=== PATIENT | male | born 1975 | race Caucasian/White ===

== ENCOUNTER 2017-01-11 16:51 | Outpatient (CLI) | payer MEDICARE, MEDICAID | END 2017-01-11 16:52 | disposition short-term general hospital (02) | LOC: EMS 16:51 | PROVIDERS: ATTEND Surgery | DX: M54.9 Dorsalgia, unspecified (principal) | CPT/HCPCS: A0425; A0427 ==

== ENCOUNTER 2017-04-23 13:25 | Outpatient (CLI) | payer MEDICARE, MEDICAID | END 2017-04-23 13:26 | disposition critical access hospital (66) | LOC: EMS 13:25 | PROVIDERS: ATTEND Surgery | DX: R55 Syncope and collapse (principal); R42 Dizziness and giddiness; R11.0 Nausea; W07.XXXA Fall from chair, initial encounter; Y92.538 Other ambulatory health services establishments as the place of occurrence of the external cause | CPT/HCPCS: A0425; A0427 ==

== ENCOUNTER 2017-04-23 13:46 | Emergency (ER) | payer MEDICARE, MEDICAID ==
[2017-04-23 13:53] VITALS: BP 139/79
--- NOTE | 2017-04-23 13:57 | ED Physician Documentation ---
PD HPI SYNCOPE - Stated complaint Stated Complaint: SYNCOPE - Chief complaint Chief Complaint: Neuro - History obtained from History obtained from: Patient, EMS - History of Present Illness Witnessed: Witnessed Timing - onset: How many minutes ago (45) Duration: Seconds (3-5) Preceding symptoms: Light headed, Generalized weakness Associated symptoms: No: Seizure, Incontinant of urine, Incontinant of stool, Headache, Vision changes, Chest pain, Palpitations, Diaphoresis, Dyspnea, Nausea / vomiting, Abdominal pain Contributing factors: Other (just finished dialysis, SBP was 75, given 500ml bolus, then went to sit up and felt lightheaded/dizzy then had a brief syncopal event. States normally is lightheaded and dizzy after dialysis.) Injury occurred: Head injury (pt is on ticagrelor) Pain level max: 1 Pain level now: 1 Treatment [employer]OOF [employer]IN [employer]LECTOR: Fluids (IVF) - Additional information Additional information: Patient is a 41-year-old male who had a syncopal event after dialysis today. Fell and hit his head. Is on blood thinners. States normally is hypotensive after dialysis and they are talking about changing his dry weight to prevent this. Review of Systems Ten Systems: 10 systems reviewed and negative Constitutional: denies: Fever, Chills Ears: denies: Ear pain Nose: denies: Rhinorrhea / runny nose, Congestion Throat: denies: Sore throat Cardiac: denies: Chest pain / pressure Respiratory: denies: Cough GI: denies: Abdominal Pain, Nausea, Vomiting, Diarrhea Skin: denies: Rash Musculoskeletal: denies: Neck pain, Back pain Neurologic: denies: Focal weakness, Numbness, Confused, Altered mental status, LOC PD PAST MEDICAL HISTORY - Past Medical History Past Medical History: Yes : Dialysis - Present Medications Home Medications: Ambulatory Orders Medication Instructions Recorded Confirmed Acetaminophen 1 tab PO PRN PRN 04/23/17 04/23/17 Alprazolam 0.5 mg PO PRN PRN 04/23/17 04/23/17 Aspirin 81 mg PO DAILY 04/23/17 04/23/17 Atorvastatin [Lipitor] 40 mg PO DAILY 04/23/17 04/23/17 Calcium Acetate [Phoslo] 2 tab PO TID 04/23/17 04/23/17 Calcium Carbonate [Antacid] 1 tab PO TID 04/23/17 04/23/17 Carvedilol [Coreg] 25 mg PO BID 04/23/17 04/23/17 Clopidogrel [Plavix] 04/23/17 Dexamethasone 2 mg PO DAILY 04/23/17 04/23/17 Febuxostat [Uloric] 40 mg PO DAILY 04/23/17 04/23/17 Furosemide 80 mg PO BID 04/23/17 04/23/17 Lisinopril 2.5 mg PO DAILY 04/23/17 04/23/17 Metoclopramide [Reglan] 10 mg PO PRN PRN 04/23/17 04/23/17 Metoprolol Tartrate 50 mg PO DAILY 04/23/17 04/23/17 Nitroglycerin [Nitrostat] 0.4 mg SL Q5MIN PRN 04/23/17 04/23/17 Omeprazole 20 mg PO DAILY 04/23/17 04/23/17 Ticagrelor [Brilinta] 90 mg PO BID 04/23/17 04/23/17 - Allergies Allergies/Adverse Reactions: Allergies Allergy/AdvReac Type Severity Reaction Status Date / Time No Known Drug Allergies Allergy Verified 04/23/17 13:53 - Living Situation Living Arrangement: reports: At home - Social History Does the pt have substance abuse?: No - Family History Family history: reports: Non contributory PD ED PE NORMAL - Vitals Vital signs reviewed: Yes - General General: Alert and oriented X 3, No acute distress, Well developed/nourished - HEENT HEENT: Atraumatic, PERRL, EOMI, Ears normal, Moist mucous membranes, Pharynx benign - Neck Neck: Supple, no meningeal sign, No bony TTP - Cardiac Cardiac: RRR, Strong equal pulses - Respiratory Respiratory: No respiratory distress, Clear bilaterally - Abdomen Abdomen: Soft, Non tender, Non distended - Back Back: No spinal TTP - Derm Derm: Warm and dry - Extremities Extremities: No tenderness to palpate - Neuro Neuro: Alert and oriented X 3, senior technical writer 2-12 intact, No motor deficit, No sensory deficit, Normal speech GCS Score: 15 - Psych Psych: Normal mood, Normal affect Results - Vitals Vitals: Vital Signs - 24 hr 04/23/17 04/23/17 13:49 14:42 Temperature 36.1 C L Heart Rate 79 Respiratory 18 Rate Blood Pressure 139/79 H O2 Saturation 99 Oxygen O2 Source Room air - EKG (time done) 1403 Rate: Rate (enter#) (79) Rhythm: NSR [place]: Normal Intervals: Normal ND QRS: Normal Ischemia: Normal ST segments - Labs Labs: Laboratory Tests 04/23/17 04/23/17 13:50 13:50 WBC 12.6 H RBC 3.68 L Hgb 11.6 L Hct 34.2 L MCV 92.9 MCH 31.6 H MCHC 34.0 RDW 16.3 H Plt Count 216 MPV 6.7 L Neut # Not Reportable Lymph # Not Reportable [place] # Not Reportable Eos # Not Reportable Baso # Not Reportable Absolute Nucleated RBC Not Reportable Total Counted 100 Band Neuts % (Manual) 4 Metamyelocytes % 1 H Myelocytes % 2 H Neutrophils # (Manual) 9.5 H Lymphocytes # (Manual) 1.6 Monocytes # (Manual) 0.9 Eosinophils # (Manual) 0.3 Nucleated RBCs Not Reportable Differential Comment MANUAL DIFFERENTIAL Manual Slide Review Indicated WBC Morphology 1+ SMUDGE CELLS Platelet Estimate NORMAL (130-450,000) Platelet Morphology NORMAL APPEARANCE RBC Morph Micro Appear 1+ TEARDROP CELLS Sodium 133 L Potassium 4.1 Chloride 99 L Carbon Dioxide 24 Anion Gap 10.0 BUN 25 H Creatinine 4.1 H Estimated GFR (MDRD) 16 L Glucose 148 H Calcium 9.3 - Rads (name of study) head Ct Radiology: Prelim report reviewed, EMP read contemporaneously, See rad report ( normal) PD MEDICAL DECISION MAKING - ED course Complexity details: reviewed results, re-evaluated patient, considered differential, d/w patient ED course: Patient is a 41-year-old male who presents to the emergency department with a syncopal event after dialysis, this was while he was hypotensive from the dialysis. Hypotension and orthostatics resolved with IV fluids. No longer orthostatic here. No findings on telemetry or EKG. No acute laboratory issues. Will follow up with his PCP for further evaluation and care. His campus administrative assistant is going to adjust his dry weight to prevent this in the future. Patient counseled regarding signs and symptoms for which I believe and urgent re -evaluation would be necessary. Patient with good understanding of and agreement to plan and is comfortable going home at this time This document was made in part using voice recognition software. While efforts are made to proofread this document, sound alike and grammatical errors may occur. Head CT is negative. Patient did strike his head and is on blood thinners Departure - Departure Disposition: 01 Home, Self Care Clinical Impression: Syncope Qualifiers: Syncope type: vasovagal syncope Qualified Code(s): R55 - Syncope and collapse Condition: Good Instructions: ED Syncope Vasovagal Follow-Up: Lidia Ramirez MD [Primary Care Provider] - Within 1 week Comments: Your tests are normal today. Return if you worsen Forms: Activity restrictions Discharge Date/Time: 04/23/17 14:59
[2017-04-23 14:08] LABS: BASOPHILS % (AUTO) 0.7 %; EOSINOPHILS % (AUTO) 1.9 %; HCT - HEMATOCRIT 34.2 % (42.0-52.0); HGB - HEMOGLOBIN 11.6 g/dL (14.0-18.0); LYMPHOCYTES % (AUTO) 14.2 %; MEAN CORPUSCULAR HEMOGLOBIN 31.6 pg (27.0-31.0); MEAN CORPUSCULAR VOLUME 92.9 fL (80.0-94.0); MEAN PLATELET VOLUME 6.7 fL (7.4-11.4); MONOCYTES % (AUTO) 7.5 %; NEUTROPHILS % (AUTO) 75.7 %; RED BLOOD COUNT 3.68 10^6/uL (4.70-6.10); RED CELL DISTRIBUTION WIDTH 16.3 % (12.0-15.0); UNCORRECTED WHITE BLOOD COUNT 12.6 x10^3/uL; WHITE BLOOD COUNT 12.6 x10^3/uL (4.8-10.8)
[2017-04-23 14:13] LABS: CALCIUM 9.3 mg/dL (8.5-10.3); CREATININE 4.1 mg/dL (0.6-1.2); POTASSIUM 4.1 mmol/L (3.5-5.0)
--- NOTE | 2017-04-23 14:38 | CT Preliminary Report ---
Exam: CT Head W/O IMPRESSION: Normal head CT. [facility] SITE ID: [id number]
--- NOTE | 2017-04-23 14:41 | CT Report ---
EXAM: CT HEAD EXAM DATE: 04/23/2017 02:23 PM. CLINICAL HISTORY: Syncope, head injury. COMPARISON: None. TECHNIQUE: Multiaxial CT images were obtained from the foramen magnum to the vertex. IV contrast: Non e. Reformats: Coronal. In accordance with CT protocol optimization, one or more of the following dose reduction techniques w ere utilized for this exam: automated exposure control, adjustment of mA and/or KV based on patient s ize, or use of iterative reconstructive technique. FINDINGS: Parenchyma: No intraparenchymal hemorrhage. No evidence of mass, midline shift, or CT findings of inf arction. Bernardo-white differentiation is distinct. Extraaxial Spaces: Normal for age. No subdural or epidural collections. Ventricles: Normal in size and position. Sinuses: Imaged paranasal sinuses, orbits, and mastoids show no significant abnormality. Bones: Unremarkable. Other: None. IMPRESSION: Normal head CT. [facility] Referring Provider Line: [phone] SITE ID: [id number]
[2017-04-23 14:55] LABS: BAND NEUTROPHILS % (MANUAL) 4 %; EOSINOPHILS % (MANUAL) 2 %; LYMPHOCYTES % (MANUAL) 13 %; NEUTROPHILS % (MANUAL) 71 %; TOTAL CELLS COUNTED 100
[2017-04-23 14:56] LABS: NP AUTO DIFFERENTIAL? YES; NP MAN DIFFERENTIAL? NO; PLATELET ESTIMATE, MANUAL NORMAL (130-450,000) (NORMAL); PLATELET MORPHOLOGY NORMAL APPEARANCE (NORMAL); WBC MORPHOLOGY (MULTIPLE) 1+ SMUDGE CELLS (NORMAL)
== END 2017-04-23 14:59 | disposition home or self-care (01) ==
LOC: EDUNIT# → ED 13:46
DX: R55 Syncope and collapse (principal); Z79.82 Long term (current) use of aspirin
CPT/HCPCS: 36415; 70450; 80048; 85025; 93005; 99283

== ENCOUNTER 2017-10-02 10:52 | Outpatient (CLI) | payer MEDICARE, MEDICAID ==
--- NOTE | 2017-10-02 14:14 | XRAY Report ---
TWO VIEW CHEST: 10/02/2017 CLINICAL INDICATION: End-stage renal disease. TECHNIQUE: Frontal and lateral views of the chest demonstrate a normal cardiac silhouette. The lungs are clear. No effusion or pneumothorax is present. IMPRESSION: NORMAL CHEST. TD: 10/02/2017 14:13
--- NOTE | 2017-10-02 15:18 | Ultrasound Report ---
COMPLETE ABDOMINAL ULTRASOUND: CLINICAL INDICATION: End-stage renal disease. TECHNIQUE: Real-time scanning was performed with pharmacy services representative static images obtained. TECHNIQUE: The liver measures 17.2 cm. Hepatic echogenicity is normal. No intrahepatic biliary dilatation or focal parenchymal lesion is present. The common bile duct measures 4 mm. The gallbladder demonstrates cholelithiasis. No gallbladder wall thickening or pericholecystic fluid is seen. The visualized pancreas is unremarkable. The spleen measures 10.7 cm, and appears unremarkable. The kidneys demonstrate cortical thinning and small cortical cysts bilaterally. The right kidney measures 10.6 cm, and the left kidney measures 10.1 cm. The abdominal aorta is normal in caliber. The inferior vena cava is unremarkable. No free fluid is present. IMPRESSION: 1. ATROPHIC KIDNEYS WITHOUT EVIDENCE OF HYDRONEPHROSIS. 2. CHOLELITHIASIS, WITHOUT EVIDENCE OF ACUTE CHOLECYSTITIS. TD: 10/02/2017 15:17
--- NOTE | 2017-10-02 15:38 | CT Report ---
CT OF THE ABDOMEN AND PELVIS WITHOUT CONTRAST: 10/02/2017 CLINICAL INDICATION: End-stage renal disease. TECHNIQUE: Axial CT images of the abdomen and pelvis were obtained without oral or intravenous contrast. FINDINGS: Limited evaluation of the lung bases is unremarkable. ABDOMEN: The kidneys are atrophic. Allowing for the lack of intravenous contrast, the liver, spleen, pancreas and adrenal glands are unremarkable. The gallbladder demonstrates a calcified gallstone. No bowel dilatation, free gas, or free fluid is present. No abdominal adenopathy is seen. PELVIS: The appendix is seen in the right lower quadrant, and is normal in caliber. No pelvic adenopathy is present. The pelvic organs appear unremarkable. No free fluid is seen. Osseous structures demonstrate mild degenerative changes. IMPRESSION: ATROPHIC KIDNEYS. CHOLELITHIASIS. In accordance with CT protocol optimization, one or more of the following dose reduction techniques were utilized for this exam: automated exposure control, adjustment of mA and/or KV based on patient size, or use of iterative reconstructive technique. TD: 10/02/2017 15:36
== END 2017-10-02 10:53 | disposition home or self-care (01) ==
LOC: DI 10:52
PROVIDERS: ATTEND Internal Medicine Nephrology
DX: N18.6 End stage renal disease (principal); Z13.9 Encounter for screening, unspecified; N26.1 Atrophy of kidney (terminal); K80.20 Calculus of gallbladder without cholecystitis without obstruction
CPT/HCPCS: 71046; 74176; 76700

== ENCOUNTER 2018-08-02 20:43 | Outpatient (CLI) | payer MEDICARE, MEDICAID | END 2018-08-02 20:44 | disposition EMS.NT | LOC: EMS 20:43 | PROVIDERS: ATTEND Surgery | DX: R42 Dizziness and giddiness (principal) ==

== ENCOUNTER 2019-06-11 08:18 | Outpatient (CLI) | payer MEDICAID, MEDICARE ==
[2019-06-11 12:54] LABS: BASOPHILS # (AUTO) 0.1 10^3/uL (0.0-0.1); BASOPHILS % (AUTO) 1.2 %; EOSINOPHILS % (AUTO) 0.4 %; HGB - HEMOGLOBIN 12.2 g/dL (14.0-18.0); LYMPHOCYTES # (AUTO) 0.8 10^3/uL (1.5-3.5); LYMPHOCYTES % (AUTO) 12.1 %; MEAN CORPUSCULAR HEMOGLOBIN 31.4 pg (27.0-31.0); MEAN CORPUSCULAR HGB CONC 31.1 g/dL (32.0-36.0); MEAN CORPUSCULAR VOLUME 100.8 fL (80.0-94.0); MONOCYTES # (AUTO) 0.4 10^3/uL (0.0-1.0); MONOCYTES % (AUTO) 5.8 %; NEUTROPHILS # (AUTO) 4.8 10^3/uL (1.5-6.6); NEUTROPHILS % (AUTO) 71.7 %; PLT - PLATELET COUNT 152 10^3/uL (130-450); RED BLOOD COUNT 3.89 10^6/uL (4.70-6.10); RED CELL DISTRIBUTION WIDTH 15.5 % (12.0-15.0); WHITE BLOOD COUNT 6.7 x10^3/uL (4.8-10.8)
[2019-06-11 13:03] LABS: ALBUMIN 4.2 g/dL (3.2-5.5); ALBUMIN/GLOBULIN RATIO 1.9 (1.0-2.2); BILIRUBIN,TOTAL 0.6 mg/dL (0.2-1.0); CALCIUM 9.3 mg/dL (8.5-10.3); CREATININE 1.6 mg/dL (0.6-1.2); MAGNESIUM 1.9 mg/dL (1.7-2.8); PHOSPHORUS 2.4 mg/dL (2.5-4.6); TOTAL PROTEIN 6.4 g/dL (6.7-8.2)
[2019-06-11 14:02] LABS: RBC MORPHOLOGY (MULTIPLE) 2+ ANISOCYTOSIS (NORMAL)
== END 2019-06-13 23:59 | disposition home or self-care (01) ==
LOC: LAB.N 08:18
PROVIDERS: ATTEND Internal Medicine
DX: Z94.0 Kidney transplant status (principal); Z48.298 Encounter for aftercare following other organ transplant; T86.40 Unspecified complication of liver transplant; E83.40 Disorders of magnesium metabolism, unspecified
CPT/HCPCS: 36415; 80053; 80197; 83735; 84100; 85025

== ENCOUNTER 2019-06-18 08:00 | Outpatient (CLI) | payer MEDICAID, MEDICARE ==
[2019-06-18 12:03] LABS: BASOPHILS # (AUTO) 0.1 10^3/uL (0.0-0.1); EOSINOPHILS % (AUTO) 0.5 %; HGB - HEMOGLOBIN 13.9 g/dL (14.0-18.0); LYMPHOCYTES # (AUTO) 0.9 10^3/uL (1.5-3.5); LYMPHOCYTES % (AUTO) 11.9 %; MEAN CORPUSCULAR HEMOGLOBIN 31.7 pg (27.0-31.0); MEAN CORPUSCULAR HGB CONC 31.7 g/dL (32.0-36.0); MEAN CORPUSCULAR VOLUME 100.2 fL (80.0-94.0); MEAN PLATELET VOLUME 9.4 fL (7.4-11.4); MONOCYTES # (AUTO) 0.5 10^3/uL (0.0-1.0); MONOCYTES % (AUTO) 6.1 %; NEUTROPHILS # (AUTO) 5.7 10^3/uL (1.5-6.6); NEUTROPHILS % (AUTO) 73.4 %; PLT - PLATELET COUNT 186 10^3/uL (130-450); RED BLOOD COUNT 4.38 10^6/uL (4.70-6.10); RED CELL DISTRIBUTION WIDTH 14.7 % (12.0-15.0); WHITE BLOOD COUNT 7.7 x10^3/uL (4.8-10.8)
[2019-06-18 12:19] LABS: ALBUMIN 4.8 g/dL (3.2-5.5); ALBUMIN/GLOBULIN RATIO 1.8 (1.0-2.2); BILIRUBIN,TOTAL 0.6 mg/dL (0.2-1.0); CALCIUM 9.8 mg/dL (8.5-10.3); CREATININE 2.2 mg/dL (0.6-1.2); MAGNESIUM 1.9 mg/dL (1.7-2.8); PHOSPHORUS 3.4 mg/dL (2.5-4.6); TOTAL PROTEIN 7.4 g/dL (6.7-8.2)
[2019-06-18 12:28] LABS: PLATELET ESTIMATE, MANUAL NORMAL (130-450,000) (NORMAL); PLATELET MORPHOLOGY NORMAL APPEARANCE (NORMAL)
[2019-06-18 12:29] LABS: RBC MORPHOLOGY (MULTIPLE) NORMAL APPEARANCE (NORMAL)
== END 2019-06-18 23:59 | disposition home or self-care (01) ==
LOC: LAB.N 08:00
PROVIDERS: ATTEND Internal Medicine
DX: Z94.0 Kidney transplant status (principal); Z48.298 Encounter for aftercare following other organ transplant; T86.40 Unspecified complication of liver transplant; E83.40 Disorders of magnesium metabolism, unspecified
CPT/HCPCS: 36415; 80053; 80197; 83735; 84100; 85025

== ENCOUNTER 2019-06-19 08:00 | Outpatient (CLI) | payer MEDICAID, MEDICARE ==
[2019-06-19 18:56] LABS: BILIRUBIN,URINE NEGATIVE (NEGATIVE); GLUCOSE, URINE (UA) NEGATIVE (NEGATIVE); KETONES,URINE (UA) NEGATIVE (NEGATIVE); LEUKOCYTE ESTERASE, URINE NEGATIVE (NEGATIVE); NITRITE,URINE NEGATIVE (NEGATIVE); OCCULT BLOOD,URINE MODERATE (NEGATIVE); PH,URINE 5.5 PH (5.0-7.5); PROTEIN,URINE NEGATIVE (NEGATIVE); UROBILINOGEN,URINE 0.2 (NORMAL) E.U./dL (NORMAL)
[2019-06-19 19:29] LABS: BACTERIA,URINE None Seen /HPF (None Seen); CLARITY,URINE CLEAR (CLEAR); SQUAMOUS EPITHELIAL CELL,UR RARE Squamous (<= Few)
== END 2019-06-19 23:59 | disposition home or self-care (01) ==
LOC: LAB.N 08:00
PROVIDERS: ATTEND Internal Medicine
DX: Z94.0 Kidney transplant status (principal); N39.0 Urinary tract infection, site not specified; Z48.298 Encounter for aftercare following other organ transplant; T86.90 Unspecified complication of unspecified transplanted organ and tissue
CPT/HCPCS: 81001; 81003; 87086

== ENCOUNTER 2019-06-25 08:00 | Outpatient (CLI) | payer MEDICARE ==
[2019-06-25 12:03] LABS: BASOPHILS % (AUTO) 1.2 %; EOSINOPHILS % (AUTO) 1.1 %; HGB - HEMOGLOBIN 13.4 g/dL (14.0-18.0); LYMPHOCYTES % (AUTO) 13.5 %; MEAN CORPUSCULAR HEMOGLOBIN 32.4 pg (27.0-31.0); MEAN CORPUSCULAR HGB CONC 32.4 g/dL (32.0-36.0); MEAN CORPUSCULAR VOLUME 99.8 fL (80.0-94.0); MEAN PLATELET VOLUME 9.3 fL (7.4-11.4); MONOCYTES % (AUTO) 5.4 %; NEUTROPHILS % (AUTO) 71.5 %; PLT - PLATELET COUNT 179 10^3/uL (130-450); RED BLOOD COUNT 4.14 10^6/uL (4.70-6.10); RED CELL DISTRIBUTION WIDTH 14.3 % (12.0-15.0); WHITE BLOOD COUNT 7.4 x10^3/uL (4.8-10.8)
[2019-06-25 12:22] LABS: BILIRUBIN,URINE NEGATIVE (NEGATIVE); GLUCOSE, URINE (UA) NEGATIVE (NEGATIVE); KETONES,URINE (UA) NEGATIVE (NEGATIVE); LEUKOCYTE ESTERASE, URINE NEGATIVE (NEGATIVE); NITRITE,URINE NEGATIVE (NEGATIVE); OCCULT BLOOD,URINE TRACE-LYSE (NEGATIVE); PROTEIN,URINE NEGATIVE (NEGATIVE); UROBILINOGEN,URINE 0.2 (NORMAL) E.U./dL (NORMAL)
[2019-06-25 12:23] LABS: CLARITY,URINE CLEAR (CLEAR)
[2019-06-25 12:33] LABS: ALBUMIN 4.2 g/dL (3.2-5.5); ALBUMIN/GLOBULIN RATIO 1.8 (1.0-2.2); BILIRUBIN,TOTAL 0.4 mg/dL (0.2-1.0); CALCIUM 9.4 mg/dL (8.5-10.3); CREATININE 1.4 mg/dL (0.6-1.2); MAGNESIUM 1.7 mg/dL (1.7-2.8); TOTAL PROTEIN 6.5 g/dL (6.7-8.2)
[2019-06-25 12:49] LABS: CREATININE,URINE 45.4 mg/dL
[2019-06-25 12:50] LABS: TOTAL PROTEIN,URINE TIMED < 6 mg/dL
[2019-06-25 12:54] LABS: ABNORMAL LYMPHS % (MANUAL) 0 %
[2019-06-25 13:02] LABS: BAND NEUTROPHILS % (MANUAL) 2 %; DIFFERENTIAL COMMENT MANUAL DIFFERENTIAL; EOSINOPHILS # (MANUAL) 0.1 10^3/uL (0-0.7); LYMPHOCYTES # (MANUAL) 1.4 10^3/uL (1.5-3.5); LYMPHOCYTES % (MANUAL) 7 %; METAMYELOCYTES % (MANUAL) 3 %; MONOCYTES # (MANUAL) 0.3 10^3/uL (0.0-1.0); MYELOCYTES % (MANUAL) 3 %
== END 2019-06-25 23:59 | disposition home or self-care (01) ==
LOC: LAB.N 08:00
PROVIDERS: ATTEND Internal Medicine
DX: Z94.0 Kidney transplant status (principal); N39.0 Urinary tract infection, site not specified; Z48.298 Encounter for aftercare following other organ transplant; T86.40 Unspecified complication of liver transplant; E83.40 Disorders of magnesium metabolism, unspecified
CPT/HCPCS: 36415; 80053; 80197; 81001; 81003; 82570; 83735; 84100; 84156; 85025; 87086

== ENCOUNTER 2019-06-29 08:00 | Outpatient (CLI) | payer MEDICARE ==
[2019-06-29 15:21] LABS: BASOPHILS % (AUTO) 0.5 %; EOSINOPHILS % (AUTO) 1.2 %; HGB - HEMOGLOBIN 13.3 g/dL (14.0-18.0); LYMPHOCYTES % (AUTO) 14.4 %; MEAN CORPUSCULAR HEMOGLOBIN 30.8 pg (27.0-31.0); MEAN CORPUSCULAR HGB CONC 30.8 g/dL (32.0-36.0); MEAN PLATELET VOLUME 9.5 fL (7.4-11.4); MONOCYTES % (AUTO) 6.7 %; NEUTROPHILS % (AUTO) 69.6 %; PLT - PLATELET COUNT 192 10^3/uL (130-450); RED BLOOD COUNT 4.32 10^6/uL (4.70-6.10); RED CELL DISTRIBUTION WIDTH 14.7 % (12.0-15.0); WHITE BLOOD COUNT 7.8 x10^3/uL (4.8-10.8)
[2019-06-29 15:26] LABS: ABNORMAL LYMPHS % (MANUAL) 0 %
[2019-06-29 15:34] LABS: CREATININE,URINE 63.2 mg/dL
[2019-06-29 15:35] LABS: TOTAL PROTEIN,URINE TIMED < 6 mg/dL
[2019-06-29 15:51] LABS: ALBUMIN 4.4 g/dL (3.2-5.5); BILIRUBIN,TOTAL 0.5 mg/dL (0.2-1.0); BILIRUBIN,URINE NEGATIVE (NEGATIVE); CALCIUM 9.4 mg/dL (8.5-10.3); CLARITY,URINE CLEAR (CLEAR); CREATININE 1.6 mg/dL (0.6-1.2); GLUCOSE, URINE (UA) NEGATIVE (NEGATIVE); KETONES,URINE (UA) NEGATIVE (NEGATIVE); LEUKOCYTE ESTERASE, URINE NEGATIVE (NEGATIVE); MAGNESIUM 2.1 mg/dL (1.7-2.8); NITRITE,URINE NEGATIVE (NEGATIVE); OCCULT BLOOD,URINE NEGATIVE (NEGATIVE); PHOSPHORUS 2.4 mg/dL (2.5-4.6); PROTEIN,URINE NEGATIVE (NEGATIVE); TOTAL PROTEIN 6.6 g/dL (6.7-8.2); UROBILINOGEN,URINE 0.2 (NORMAL) E.U./dL (NORMAL)
[2019-06-29 16:54] LABS: BAND NEUTROPHILS % (MANUAL) 5 %; DIFFERENTIAL COMMENT MANUAL DIFFERENTIAL; EOSINOPHILS # (MANUAL) 0.1 10^3/uL (0-0.7); LYMPHOCYTES % (MANUAL) 13 %; MONOCYTES # (MANUAL) 0.2 10^3/uL (0.0-1.0); PLATELET ESTIMATE, MANUAL NORMAL (130-450,000) (NORMAL); PLATELET MORPHOLOGY NORMAL APPEARANCE (NORMAL); RBC MORPHOLOGY (MULTIPLE) NORMAL APPEARANCE (NORMAL)
== END 2019-06-29 23:59 | disposition home or self-care (01) ==
LOC: LAB.WCP 08:00
PROVIDERS: ATTEND Internal Medicine
DX: Z48.298 Encounter for aftercare following other organ transplant (principal); Z94.0 Kidney transplant status; T86.40 Unspecified complication of liver transplant; E83.40 Disorders of magnesium metabolism, unspecified; N39.0 Urinary tract infection, site not specified
CPT/HCPCS: 36415; 80053; 80197; 81001; 81003; 82570; 83735; 84100; 84156; 85025; 87086

== ENCOUNTER 2019-07-09 08:00 | Outpatient (CLI) | payer MEDICARE ==
[2019-07-09 13:04] LABS: BASOPHILS # (AUTO) 0.1 10^3/uL (0.0-0.1); BASOPHILS % (AUTO) 1.2 %; EOSINOPHILS # (AUTO) 0.1 10^3/uL (0.0-0.7); EOSINOPHILS % (AUTO) 1.5 %; HGB - HEMOGLOBIN 13.8 g/dL (14.0-18.0); LYMPHOCYTES # (AUTO) 0.9 10^3/uL (1.5-3.5); LYMPHOCYTES % (AUTO) 12.7 %; MEAN CORPUSCULAR HEMOGLOBIN 31.7 pg (27.0-31.0); MEAN CORPUSCULAR HGB CONC 32.1 g/dL (32.0-36.0); MEAN CORPUSCULAR VOLUME 98.9 fL (80.0-94.0); MONOCYTES # (AUTO) 0.5 10^3/uL (0.0-1.0); MONOCYTES % (AUTO) 7.5 %; NEUTROPHILS # (AUTO) 4.8 10^3/uL (1.5-6.6); NEUTROPHILS % (AUTO) 70.9 %; PLT - PLATELET COUNT 174 10^3/uL (130-450); RED BLOOD COUNT 4.35 10^6/uL (4.70-6.10); RED CELL DISTRIBUTION WIDTH 13.9 % (12.0-15.0); WHITE BLOOD COUNT 6.8 x10^3/uL (4.8-10.8)
[2019-07-09 13:14] LABS: ALBUMIN 4.3 g/dL (3.2-5.5); ALBUMIN/GLOBULIN RATIO 1.8 (1.0-2.2); BILIRUBIN,TOTAL 0.5 mg/dL (0.2-1.0); CALCIUM 9.3 mg/dL (8.5-10.3); CREATININE 1.7 mg/dL (0.6-1.2); MAGNESIUM 1.7 mg/dL (1.7-2.8); PHOSPHORUS 2.6 mg/dL (2.5-4.6); TOTAL PROTEIN 6.7 g/dL (6.7-8.2)
[2019-07-09 14:35] LABS: RBC MORPHOLOGY (MULTIPLE) 2+ ANISOCYTOSIS (NORMAL)
== END 2019-07-09 23:59 | disposition home or self-care (01) ==
LOC: LAB.N 08:00
PROVIDERS: ATTEND Internal Medicine
DX: Z94.0 Kidney transplant status (principal); N39.0 Urinary tract infection, site not specified; Z48.298 Encounter for aftercare following other organ transplant; T86.40 Unspecified complication of liver transplant; E83.40 Disorders of magnesium metabolism, unspecified; T86.90 Unspecified complication of unspecified transplanted organ and tissue
CPT/HCPCS: 36415; 80053; 80197; 81001; 81003; 82570; 83735; 84100; 84156; 85025; 87086

== ENCOUNTER 2019-07-13 07:02 | Outpatient (CLI) | payer MEDICARE ==
[2019-07-13 12:55] LABS: EOSINOPHILS % (AUTO) 1.1 %; HGB - HEMOGLOBIN 14.1 g/dL (14.0-18.0); LYMPHOCYTES % (AUTO) 10.7 %; MEAN CORPUSCULAR HEMOGLOBIN 31.7 pg (27.0-31.0); MEAN CORPUSCULAR HGB CONC 32.2 g/dL (32.0-36.0); MEAN CORPUSCULAR VOLUME 98.4 fL (80.0-94.0); MEAN PLATELET VOLUME 9.7 fL (7.4-11.4); MONOCYTES % (AUTO) 8.1 %; PLT - PLATELET COUNT 155 10^3/uL (130-450); RED BLOOD COUNT 4.45 10^6/uL (4.70-6.10); RED CELL DISTRIBUTION WIDTH 14.1 % (12.0-15.0); WHITE BLOOD COUNT 6.2 x10^3/uL (4.8-10.8)
[2019-07-13 13:15] LABS: BILIRUBIN,URINE NEGATIVE (NEGATIVE); GLUCOSE, URINE (UA) NEGATIVE (NEGATIVE); KETONES,URINE (UA) NEGATIVE (NEGATIVE); LEUKOCYTE ESTERASE, URINE NEGATIVE (NEGATIVE); NITRITE,URINE NEGATIVE (NEGATIVE); OCCULT BLOOD,URINE NEGATIVE (NEGATIVE); PROTEIN,URINE NEGATIVE (NEGATIVE); UROBILINOGEN,URINE 0.2 (NORMAL) E.U./dL (NORMAL)
[2019-07-13 13:16] LABS: ALBUMIN 4.4 g/dL (3.2-5.5); ALBUMIN/GLOBULIN RATIO 1.8 (1.0-2.2); BILIRUBIN,TOTAL 0.4 mg/dL (0.2-1.0); CALCIUM 9.6 mg/dL (8.5-10.3); CREATININE 1.5 mg/dL (0.6-1.2); MAGNESIUM 1.9 mg/dL (1.7-2.8); PHOSPHORUS 2.9 mg/dL (2.5-4.6); TOTAL PROTEIN 6.9 g/dL (6.7-8.2)
[2019-07-13 13:19] LABS: CLARITY,URINE CLEAR (CLEAR)
[2019-07-13 14:04] LABS: ABNORMAL LYMPHS % (MANUAL) 0 %
[2019-07-13 14:40] LABS: BAND NEUTROPHILS % (MANUAL) 7 %; EOSINOPHILS # (MANUAL) 0.1 10^3/uL (0-0.7); LYMPHOCYTES # (MANUAL) 0.7 10^3/uL (1.5-3.5); LYMPHOCYTES % (MANUAL) 11 %; METAMYELOCYTES % (MANUAL) 2 %; MONOCYTES # (MANUAL) 0.1 10^3/uL (0.0-1.0); MYELOCYTES % (MANUAL) 2 %
[2019-07-13 14:42] LABS: DIFFERENTIAL COMMENT MANUAL DIFFERENTIAL; PLATELET ESTIMATE, MANUAL NORMAL (130-450,000) (NORMAL); PLATELET MORPHOLOGY NORMAL APPEARANCE (NORMAL); RBC MORPHOLOGY (MULTIPLE) NORMAL APPEARANCE (NORMAL)
== END 2019-07-13 23:59 | disposition home or self-care (01) ==
LOC: LAB.N 07:02
PROVIDERS: ATTEND Internal Medicine
DX: Z94.0 Kidney transplant status (principal); Z48.298 Encounter for aftercare following other organ transplant; T86.40 Unspecified complication of liver transplant; E83.40 Disorders of magnesium metabolism, unspecified; N39.0 Urinary tract infection, site not specified; T86.90 Unspecified complication of unspecified transplanted organ and tissue
CPT/HCPCS: 36415; 80053; 80197; 81001; 81003; 82043; 82570; 83735; 84100; 84156; 85025; 87086

== ENCOUNTER 2019-07-27 07:11 | Outpatient (CLI) | payer MEDICARE ==
[2019-07-27 12:59] LABS: ALBUMIN 4.1 g/dL (3.2-5.5); BILIRUBIN,TOTAL 0.4 mg/dL (0.2-1.0); CALCIUM 9.2 mg/dL (8.5-10.3); CREATININE 1.6 mg/dL (0.6-1.2); MAGNESIUM 1.8 mg/dL (1.7-2.8); PHOSPHORUS 2.7 mg/dL (2.5-4.6); TOTAL PROTEIN 6.2 g/dL (6.7-8.2)
[2019-07-27 13:11] LABS: BASOPHILS # (AUTO) 0.1 10^3/uL (0.0-0.1); BASOPHILS % (AUTO) 1.1 %; EOSINOPHILS # (AUTO) 0.1 10^3/uL (0.0-0.7); EOSINOPHILS % (AUTO) 1.1 %; LYMPHOCYTES % (AUTO) 14.3 %; MEAN CORPUSCULAR HEMOGLOBIN 30.8 pg (27.0-31.0); MEAN CORPUSCULAR HGB CONC 32.3 g/dL (32.0-36.0); MEAN CORPUSCULAR VOLUME 95.4 fL (80.0-94.0); MEAN PLATELET VOLUME 9.3 fL (7.4-11.4); MONOCYTES # (AUTO) 0.6 10^3/uL (0.0-1.0); MONOCYTES % (AUTO) 7.9 %; NEUTROPHILS # (AUTO) 5.1 10^3/uL (1.5-6.6); NEUTROPHILS % (AUTO) 70.6 %; PLT - PLATELET COUNT 172 10^3/uL (130-450); RED BLOOD COUNT 4.54 10^6/uL (4.70-6.10); RED CELL DISTRIBUTION WIDTH 13.5 % (12.0-15.0); WHITE BLOOD COUNT 7.2 x10^3/uL (4.8-10.8)
[2019-07-27 13:25] LABS: BILIRUBIN,URINE NEGATIVE (NEGATIVE); GLUCOSE, URINE (UA) NEGATIVE (NEGATIVE); KETONES,URINE (UA) NEGATIVE (NEGATIVE); LEUKOCYTE ESTERASE, URINE NEGATIVE (NEGATIVE); NITRITE,URINE NEGATIVE (NEGATIVE); OCCULT BLOOD,URINE NEGATIVE (NEGATIVE); PROTEIN,URINE NEGATIVE (NEGATIVE); UROBILINOGEN,URINE 0.2 (NORMAL) E.U./dL (NORMAL)
[2019-07-27 13:26] LABS: CLARITY,URINE CLEAR (CLEAR)
[2019-07-27 13:33] LABS: PROTEIN/CREATININE RATIO,URINE 0.1 (<=0.2)
== END 2019-07-27 23:59 | disposition home or self-care (01) ==
LOC: LAB.N 07:11
PROVIDERS: ATTEND Internal Medicine
DX: Z94.0 Kidney transplant status (principal); Z48.298 Encounter for aftercare following other organ transplant; T86.40 Unspecified complication of liver transplant; E83.40 Disorders of magnesium metabolism, unspecified; N39.0 Urinary tract infection, site not specified; T86.90 Unspecified complication of unspecified transplanted organ and tissue
CPT/HCPCS: 36415; 80053; 80197; 81001; 81003; 82570; 83735; 84100; 84156; 85025; 87086

== ENCOUNTER 2019-08-06 07:27 | Outpatient (CLI) | payer MEDICARE ==
[2019-08-06 12:57] LABS: BASOPHILS # (AUTO) 0.1 10^3/uL (0.0-0.1); BASOPHILS % (AUTO) 0.8 %; EOSINOPHILS # (AUTO) 0.1 10^3/uL (0.0-0.7); EOSINOPHILS % (AUTO) 1.6 %; LYMPHOCYTES # (AUTO) 0.9 10^3/uL (1.5-3.5); LYMPHOCYTES % (AUTO) 14.5 %; MEAN CORPUSCULAR HGB CONC 32.4 g/dL (32.0-36.0); MEAN CORPUSCULAR VOLUME 95.8 fL (80.0-94.0); MEAN PLATELET VOLUME 9.4 fL (7.4-11.4); MONOCYTES # (AUTO) 0.4 10^3/uL (0.0-1.0); NEUTROPHILS # (AUTO) 4.6 10^3/uL (1.5-6.6); NEUTROPHILS % (AUTO) 74.5 %; PLT - PLATELET COUNT 170 10^3/uL (130-450); RED BLOOD COUNT 4.51 10^6/uL (4.70-6.10); RED CELL DISTRIBUTION WIDTH 13.4 % (12.0-15.0); WHITE BLOOD COUNT 6.1 x10^3/uL (4.8-10.8)
[2019-08-06 14:10] LABS: ALBUMIN 4.1 g/dL (3.2-5.5); BILIRUBIN,TOTAL 0.8 mg/dL (0.2-1.0); CALCIUM 9.3 mg/dL (8.5-10.3); CREATININE 1.8 mg/dL (0.6-1.2); MAGNESIUM 1.6 mg/dL (1.7-2.8); PHOSPHORUS 2.6 mg/dL (2.5-4.6); TOTAL PROTEIN 6.2 g/dL (6.7-8.2)
== END 2019-08-06 23:59 | disposition home or self-care (01) ==
LOC: LAB.N 07:27
PROVIDERS: ATTEND Internal Medicine
DX: Z94.0 Kidney transplant status (principal); Z48.298 Encounter for aftercare following other organ transplant; T86.40 Unspecified complication of liver transplant; E83.40 Disorders of magnesium metabolism, unspecified
CPT/HCPCS: 36415; 80053; 80197; 83735; 84100; 85025

== ENCOUNTER 2019-08-13 08:00 | Outpatient (CLI) | payer MEDICARE ==
[2019-08-13 11:56] LABS: BASOPHILS # (AUTO) 0.1 10^3/uL (0.0-0.1); BASOPHILS % (AUTO) 1.4 %; EOSINOPHILS # (AUTO) 0.1 10^3/uL (0.0-0.7); EOSINOPHILS % (AUTO) 1.5 %; HGB - HEMOGLOBIN 14.7 g/dL (14.0-18.0); LYMPHOCYTES # (AUTO) 1.1 10^3/uL (1.5-3.5); LYMPHOCYTES % (AUTO) 17.1 %; MEAN CORPUSCULAR HEMOGLOBIN 30.9 pg (27.0-31.0); MEAN CORPUSCULAR HGB CONC 32.6 g/dL (32.0-36.0); MEAN CORPUSCULAR VOLUME 94.7 fL (80.0-94.0); MONOCYTES # (AUTO) 0.4 10^3/uL (0.0-1.0); MONOCYTES % (AUTO) 6.1 %; NEUTROPHILS # (AUTO) 4.6 10^3/uL (1.5-6.6); NEUTROPHILS % (AUTO) 70.3 %; PLT - PLATELET COUNT 173 10^3/uL (130-450); RED BLOOD COUNT 4.76 10^6/uL (4.70-6.10); RED CELL DISTRIBUTION WIDTH 13.4 % (12.0-15.0); WHITE BLOOD COUNT 6.6 x10^3/uL (4.8-10.8)
[2019-08-13 12:19] LABS: ALBUMIN 4.3 g/dL (3.2-5.5); ALBUMIN/GLOBULIN RATIO 1.6 (1.0-2.2); BILIRUBIN,TOTAL 0.5 mg/dL (0.2-1.0); CALCIUM 9.7 mg/dL (8.5-10.3); CREATININE 1.5 mg/dL (0.6-1.2); PHOSPHORUS 2.9 mg/dL (2.5-4.6)
== END 2019-08-13 23:59 | disposition home or self-care (01) ==
LOC: LAB.N 08:00
PROVIDERS: ATTEND Internal Medicine
DX: Z94.0 Kidney transplant status (principal); Z48.298 Encounter for aftercare following other organ transplant; T86.40 Unspecified complication of liver transplant; E83.40 Disorders of magnesium metabolism, unspecified
CPT/HCPCS: 36415; 80053; 80197; 83735; 84100; 85025

== ENCOUNTER → 2019-08-25 | Outpatient (CLI) | payer MEDICARE ==
[2019-08-25 11:47] LABS: BASOPHILS # (AUTO) 0.1 10^3/uL (0.0-0.1); EOSINOPHILS # (AUTO) 0.1 10^3/uL (0.0-0.7); EOSINOPHILS % (AUTO) 1.2 %; HGB - HEMOGLOBIN 15.4 g/dL (14.0-18.0); LYMPHOCYTES # (AUTO) 1.2 10^3/uL (1.5-3.5); LYMPHOCYTES % (AUTO) 13.5 %; MEAN CORPUSCULAR HEMOGLOBIN 30.9 pg (27.0-31.0); MEAN CORPUSCULAR HGB CONC 32.4 g/dL (32.0-36.0); MEAN CORPUSCULAR VOLUME 95.4 fL (80.0-94.0); MEAN PLATELET VOLUME 9.2 fL (7.4-11.4); MONOCYTES # (AUTO) 0.8 10^3/uL (0.0-1.0); MONOCYTES % (AUTO) 8.9 %; NEUTROPHILS # (AUTO) 6.4 10^3/uL (1.5-6.6); NEUTROPHILS % (AUTO) 70.3 %; PLT - PLATELET COUNT 183 10^3/uL (130-450); RED BLOOD COUNT 4.98 10^6/uL (4.70-6.10); RED CELL DISTRIBUTION WIDTH 13.5 % (12.0-15.0); WHITE BLOOD COUNT 9.1 x10^3/uL (4.8-10.8)
[2019-08-25 12:01] LABS: ALBUMIN 4.2 g/dL (3.2-5.5); ALBUMIN/GLOBULIN RATIO 1.8 (1.0-2.2); BILIRUBIN,TOTAL 0.6 mg/dL (0.2-1.0); CALCIUM 9.2 mg/dL (8.5-10.3); CREATININE 1.4 mg/dL (0.6-1.2); TOTAL PROTEIN 6.6 g/dL (6.7-8.2)
[2019-08-25 12:07] LABS: PLATELET ESTIMATE, MANUAL NORMAL (130-450,000) (NORMAL); PLATELET MORPHOLOGY NORMAL APPEARANCE (NORMAL)
[2019-08-25 12:08] LABS: RBC MORPHOLOGY (MULTIPLE) NORMAL APPEARANCE (NORMAL)
== END ==
LOC: LAB.N 08:00
PROVIDERS: ATTEND Internal Medicine
DX: Z94.0 Kidney transplant status (principal); Z48.298 Encounter for aftercare following other organ transplant; T86.40 Unspecified complication of liver transplant; E83.40 Disorders of magnesium metabolism, unspecified
CPT/HCPCS: 36415; 80053; 80197; 83735; 84100; 85025

== ENCOUNTER → 2019-09-01 | Outpatient (CLI) | payer MEDICARE ==
[2019-09-01 12:23] LABS: BASOPHILS # (AUTO) 0.1 10^3/uL (0.0-0.1); BASOPHILS % (AUTO) 1.3 %; EOSINOPHILS # (AUTO) 0.1 10^3/uL (0.0-0.7); EOSINOPHILS % (AUTO) 1.3 %; LYMPHOCYTES # (AUTO) 1.2 10^3/uL (1.5-3.5); LYMPHOCYTES % (AUTO) 14.6 %; MEAN CORPUSCULAR HEMOGLOBIN 30.5 pg (27.0-31.0); MEAN CORPUSCULAR HGB CONC 32.2 g/dL (32.0-36.0); MEAN CORPUSCULAR VOLUME 94.8 fL (80.0-94.0); MEAN PLATELET VOLUME 9.2 fL (7.4-11.4); MONOCYTES # (AUTO) 0.7 10^3/uL (0.0-1.0); MONOCYTES % (AUTO) 8.4 %; NEUTROPHILS # (AUTO) 5.9 10^3/uL (1.5-6.6); NEUTROPHILS % (AUTO) 69.7 %; PLT - PLATELET COUNT 190 10^3/uL (130-450); RED BLOOD COUNT 5.24 10^6/uL (4.70-6.10); RED CELL DISTRIBUTION WIDTH 13.2 % (12.0-15.0); WHITE BLOOD COUNT 8.5 x10^3/uL (4.8-10.8)
[2019-09-01 12:41] LABS: ALBUMIN 4.4 g/dL (3.2-5.5); ALBUMIN/GLOBULIN RATIO 1.7 (1.0-2.2); BILIRUBIN,TOTAL 0.7 mg/dL (0.2-1.0); CALCIUM 9.3 mg/dL (8.5-10.3); CREATININE 1.4 mg/dL (0.6-1.2); MAGNESIUM 1.8 mg/dL (1.7-2.8); PHOSPHORUS 2.7 mg/dL (2.5-4.6)
== END ==
LOC: LAB.N 08:00
PROVIDERS: ATTEND Internal Medicine
DX: Z94.0 Kidney transplant status (principal); Z48.298 Encounter for aftercare following other organ transplant; T86.40 Unspecified complication of liver transplant; E83.40 Disorders of magnesium metabolism, unspecified
CPT/HCPCS: 36415; 80053; 80197; 83735; 84100; 85025

== ENCOUNTER 2019-09-22 08:00 | Outpatient (CLI) | payer MEDICARE ==
[2019-09-22 11:55] LABS: BASOPHILS # (AUTO) 0.1 10^3/uL (0.0-0.1); BASOPHILS % (AUTO) 1.3 %; EOSINOPHILS # (AUTO) 0.1 10^3/uL (0.0-0.7); EOSINOPHILS % (AUTO) 1.4 %; HGB - HEMOGLOBIN 15.2 g/dL (14.0-18.0); LYMPHOCYTES # (AUTO) 1.1 10^3/uL (1.5-3.5); LYMPHOCYTES % (AUTO) 12.8 %; MEAN CORPUSCULAR HEMOGLOBIN 29.4 pg (27.0-31.0); MEAN CORPUSCULAR HGB CONC 31.7 g/dL (32.0-36.0); MEAN CORPUSCULAR VOLUME 92.8 fL (80.0-94.0); MEAN PLATELET VOLUME 9.6 fL (7.4-11.4); MONOCYTES # (AUTO) 0.7 10^3/uL (0.0-1.0); MONOCYTES % (AUTO) 7.5 %; NEUTROPHILS # (AUTO) 6.4 10^3/uL (1.5-6.6); NEUTROPHILS % (AUTO) 72.9 %; PLT - PLATELET COUNT 166 10^3/uL (130-450); RED BLOOD COUNT 5.17 10^6/uL (4.70-6.10); RED CELL DISTRIBUTION WIDTH 13.2 % (12.0-15.0); WHITE BLOOD COUNT 8.8 x10^3/uL (4.8-10.8)
[2019-09-22 12:07] LABS: CALCIUM 9.3 mg/dL (8.5-10.3); CREATININE 1.4 mg/dL (0.6-1.2)
== END 2019-09-22 23:59 | disposition home or self-care (01) ==
LOC: LAB.N 08:00
PROVIDERS: ATTEND Internal Medicine Nephrology
DX: N05.9 Unspecified nephritic syndrome with unspecified morphologic changes (principal); D70.9 Neutropenia, unspecified; D63.1 Anemia in chronic kidney disease; T86.10 Unspecified complication of kidney transplant; N18.9 Chronic kidney disease, unspecified
CPT/HCPCS: 36415; 80048; 80197; 85025

== ENCOUNTER 2019-09-28 07:01 | Outpatient (CLI) | payer MEDICARE ==
[2019-09-28 11:47] LABS: BASOPHILS # (AUTO) 0.1 10^3/uL (0.0-0.1); BASOPHILS % (AUTO) 1.1 %; EOSINOPHILS # (AUTO) 0.1 10^3/uL (0.0-0.7); EOSINOPHILS % (AUTO) 1.2 %; HGB - HEMOGLOBIN 16.1 g/dL (14.0-18.0); LYMPHOCYTES # (AUTO) 1.4 10^3/uL (1.5-3.5); LYMPHOCYTES % (AUTO) 14.2 %; MEAN CORPUSCULAR HGB CONC 32.5 g/dL (32.0-36.0); MEAN CORPUSCULAR VOLUME 92.4 fL (80.0-94.0); MEAN PLATELET VOLUME 9.4 fL (7.4-11.4); MONOCYTES # (AUTO) 0.8 10^3/uL (0.0-1.0); MONOCYTES % (AUTO) 7.6 %; NEUTROPHILS # (AUTO) 7.1 10^3/uL (1.5-6.6); NEUTROPHILS % (AUTO) 71.2 %; PLT - PLATELET COUNT 206 10^3/uL (130-450); RED BLOOD COUNT 5.36 10^6/uL (4.70-6.10); RED CELL DISTRIBUTION WIDTH 13.2 % (12.0-15.0)
[2019-09-28 12:03] LABS: CALCIUM 9.5 mg/dL (8.5-10.3); CREATININE 1.4 mg/dL (0.6-1.2)
== END 2019-09-28 23:59 | disposition home or self-care (01) ==
LOC: LAB.N 07:01
PROVIDERS: ATTEND Internal Medicine Nephrology
DX: N05.9 Unspecified nephritic syndrome with unspecified morphologic changes (principal); D70.9 Neutropenia, unspecified; D63.1 Anemia in chronic kidney disease; T86.10 Unspecified complication of kidney transplant; N18.9 Chronic kidney disease, unspecified
CPT/HCPCS: 36415; 80048; 80197; 85025

== ENCOUNTER 2019-10-12 08:00 | Outpatient (CLI) | payer MEDICARE, OTHER ==
[2019-10-12 12:10] LABS: BASOPHILS % (AUTO) 0.1 %; EOSINOPHILS # (AUTO) 0.1 10^3/uL (0.0-0.7); EOSINOPHILS % (AUTO) 1.1 %; HGB - HEMOGLOBIN 14.8 g/dL (14.0-18.0); LYMPHOCYTES # (AUTO) 1.4 10^3/uL (1.5-3.5); LYMPHOCYTES % (AUTO) 15.5 %; MEAN CORPUSCULAR HEMOGLOBIN 28.7 pg (27.0-31.0); MEAN CORPUSCULAR HGB CONC 30.9 g/dL (32.0-36.0); MEAN CORPUSCULAR VOLUME 92.8 fL (80.0-94.0); MEAN PLATELET VOLUME 9.2 fL (7.4-11.4); MONOCYTES # (AUTO) 0.6 10^3/uL (0.0-1.0); MONOCYTES % (AUTO) 6.6 %; NEUTROPHILS # (AUTO) 6.6 10^3/uL (1.5-6.6); NEUTROPHILS % (AUTO) 72.3 %; PLT - PLATELET COUNT 170 10^3/uL (130-450); RED BLOOD COUNT 5.16 10^6/uL (4.70-6.10); RED CELL DISTRIBUTION WIDTH 13.2 % (12.0-15.0); WHITE BLOOD COUNT 9.1 x10^3/uL (4.8-10.8)
[2019-10-12 12:40] LABS: CALCIUM 9.4 mg/dL (8.5-10.3); CREATININE 1.4 mg/dL (0.6-1.2)
[2019-10-12 12:41] LABS: PLATELET ESTIMATE, MANUAL NORMAL (130-450,000) (NORMAL); PLATELET MORPHOLOGY NORMAL APPEARANCE (NORMAL); RBC MORPHOLOGY (MULTIPLE) NORMAL APPEARANCE (NORMAL)
== END 2019-10-12 23:59 | disposition home or self-care (01) ==
LOC: LAB.N 08:00
PROVIDERS: ATTEND Internal Medicine Nephrology
DX: N05.9 Unspecified nephritic syndrome with unspecified morphologic changes (principal); D70.9 Neutropenia, unspecified; D63.1 Anemia in chronic kidney disease; T86.10 Unspecified complication of kidney transplant; N18.9 Chronic kidney disease, unspecified
CPT/HCPCS: 36415; 80048; 80197; 85025

== ENCOUNTER 2019-10-26 08:14 | Outpatient (CLI) | payer MEDICARE, OTHER ==
[2019-10-26 12:04] LABS: BASOPHILS # (AUTO) 0.1 10^3/uL (0.0-0.1); BASOPHILS % (AUTO) 0.9 %; EOSINOPHILS # (AUTO) 0.1 10^3/uL (0.0-0.7); EOSINOPHILS % (AUTO) 1.3 %; HGB - HEMOGLOBIN 15.4 g/dL (14.0-18.0); LYMPHOCYTES # (AUTO) 1.4 10^3/uL (1.5-3.5); LYMPHOCYTES % (AUTO) 15.5 %; MEAN CORPUSCULAR HEMOGLOBIN 29.7 pg (27.0-31.0); MEAN CORPUSCULAR HGB CONC 32.7 g/dL (32.0-36.0); MEAN CORPUSCULAR VOLUME 90.8 fL (80.0-94.0); MEAN PLATELET VOLUME 9.4 fL (7.4-11.4); MONOCYTES # (AUTO) 0.6 10^3/uL (0.0-1.0); MONOCYTES % (AUTO) 6.7 %; NEUTROPHILS # (AUTO) 6.3 10^3/uL (1.5-6.6); NEUTROPHILS % (AUTO) 71.4 %; PLT - PLATELET COUNT 186 10^3/uL (130-450); RED BLOOD COUNT 5.19 10^6/uL (4.70-6.10); RED CELL DISTRIBUTION WIDTH 13.3 % (12.0-15.0); WHITE BLOOD COUNT 8.8 x10^3/uL (4.8-10.8)
[2019-10-26 12:25] LABS: CALCIUM 9.2 mg/dL (8.5-10.3); CREATININE 1.4 mg/dL (0.6-1.2)
== END 2019-10-26 23:59 | disposition home or self-care (01) ==
LOC: LAB.N 08:14
PROVIDERS: ATTEND Internal Medicine Nephrology
DX: N05.9 Unspecified nephritic syndrome with unspecified morphologic changes (principal); D70.9 Neutropenia, unspecified; D63.1 Anemia in chronic kidney disease; T86.10 Unspecified complication of kidney transplant
CPT/HCPCS: 36415; 80048; 80197; 85025

== ENCOUNTER 2019-11-02 08:00 | Outpatient (CLI) | payer MEDICARE, OTHER ==
[2019-11-02 12:12] LABS: BASOPHILS # (AUTO) 0.1 10^3/uL (0.0-0.1); BASOPHILS % (AUTO) 1.3 %; EOSINOPHILS # (AUTO) 0.1 10^3/uL (0.0-0.7); EOSINOPHILS % (AUTO) 1.6 %; HGB - HEMOGLOBIN 15.2 g/dL (14.0-18.0); LYMPHOCYTES % (AUTO) 14.7 %; MEAN CORPUSCULAR HEMOGLOBIN 30.6 pg (27.0-31.0); MEAN CORPUSCULAR HGB CONC 33.1 g/dL (32.0-36.0); MEAN CORPUSCULAR VOLUME 92.4 fL (80.0-94.0); MEAN PLATELET VOLUME 9.7 fL (7.4-11.4); MONOCYTES # (AUTO) 0.6 10^3/uL (0.0-1.0); MONOCYTES % (AUTO) 7.9 %; NEUTROPHILS % (AUTO) 70.6 %; PLT - PLATELET COUNT 177 10^3/uL (130-450); RED BLOOD COUNT 4.97 10^6/uL (4.70-6.10); RED CELL DISTRIBUTION WIDTH 13.5 % (12.0-15.0); WHITE BLOOD COUNT 7.1 x10^3/uL (4.8-10.8)
[2019-11-02 12:35] LABS: CALCIUM 9.5 mg/dL (8.5-10.3)
[2019-11-02 12:36] LABS: PLATELET ESTIMATE, MANUAL NORMAL (130-450,000) (NORMAL)
[2019-11-02 12:39] LABS: CREATININE 1.3 mg/dL (0.6-1.2)
== END 2019-11-02 23:59 | disposition home or self-care (01) ==
LOC: LAB.N 08:00
PROVIDERS: ATTEND Internal Medicine Nephrology
DX: N05.9 Unspecified nephritic syndrome with unspecified morphologic changes (principal); D70.9 Neutropenia, unspecified; D63.1 Anemia in chronic kidney disease; T86.10 Unspecified complication of kidney transplant; N18.9 Chronic kidney disease, unspecified
CPT/HCPCS: 36415; 80048; 80197; 85025

== ENCOUNTER 2019-11-17 07:13 | Outpatient (CLI) | payer MEDICARE, OTHER ==
[2019-11-17 12:28] LABS: HGB - HEMOGLOBIN 15.1 g/dL (14.0-18.0); MEAN CORPUSCULAR HGB CONC 31.7 g/dL (32.0-36.0); MEAN CORPUSCULAR VOLUME 91.5 fL (80.0-94.0); MEAN PLATELET VOLUME 9.5 fL (7.4-11.4); RED BLOOD COUNT 5.2 10^6/uL (4.70-6.10); RED CELL DISTRIBUTION WIDTH 13.5 % (12.0-15.0); WHITE BLOOD COUNT 8.2 x10^3/uL (4.8-10.8)
[2019-11-17 13:03] LABS: CALCIUM 9.4 mg/dL (8.5-10.3); CREATININE 1.3 mg/dL (0.6-1.2); PHOSPHORUS 3.2 mg/dL (2.5-4.6)
[2019-11-17 17:59] LABS: CREATININE,URINE 109.7 mg/dL; MICROALBUM/CREATININE RATIO,UR 1.8 ug/mg (<30.0); MICROALBUMIN,URINE 0.2 mg/dL (0-300.0)
== END 2019-11-17 23:59 | disposition home or self-care (01) ==
LOC: LAB.WCP 07:13
PROVIDERS: ATTEND Internal Medicine Nephrology
DX: N05.9 Unspecified nephritic syndrome with unspecified morphologic changes (principal); N25.81 Secondary hyperparathyroidism of renal origin; D70.9 Neutropenia, unspecified; D63.1 Anemia in chronic kidney disease; R80.9 Proteinuria, unspecified; T86.10 Unspecified complication of kidney transplant; N18.9 Chronic kidney disease, unspecified
CPT/HCPCS: 36415; 80048; 80197; 82043; 82570; 83735; 83970; 84100; 85027

== ENCOUNTER 2019-12-29 07:18 | Outpatient (CLI) | payer MEDICARE, OTHER ==
[2019-12-29 13:57] LABS: CALCIUM 9.1 mg/dL (8.5-10.3); CREATININE 1.3 mg/dL (0.6-1.2)
[2019-12-29 14:09] LABS: HGB - HEMOGLOBIN 15.3 g/dL (14.0-18.0); MEAN CORPUSCULAR HEMOGLOBIN 30.2 pg (27.0-31.0); MEAN CORPUSCULAR HGB CONC 32.2 g/dL (32.0-36.0); MEAN CORPUSCULAR VOLUME 93.9 fL (80.0-94.0); MEAN PLATELET VOLUME 9.5 fL (7.4-11.4); RED BLOOD COUNT 5.06 10^6/uL (4.70-6.10); RED CELL DISTRIBUTION WIDTH 13.9 % (12.0-15.0); WHITE BLOOD COUNT 8.1 x10^3/uL (4.8-10.8)
== END 2019-12-29 23:59 | disposition home or self-care (01) ==
LOC: LAB.WCP 07:18
PROVIDERS: ATTEND Internal Medicine Nephrology
DX: N05.9 Unspecified nephritic syndrome with unspecified morphologic changes (principal); D63.1 Anemia in chronic kidney disease; D70.9 Neutropenia, unspecified; T86.10 Unspecified complication of kidney transplant
CPT/HCPCS: 36415; 80048; 80197; 85027

== ENCOUNTER 2020-03-21 08:00 | Outpatient (CLI) | payer MEDICARE, OTHER ==
[2020-03-21 12:08] LABS: MEAN CORPUSCULAR HEMOGLOBIN 30.2 pg (27.0-31.0); MEAN CORPUSCULAR HGB CONC 32.5 g/dL (32.0-36.0); MEAN PLATELET VOLUME 9.4 fL (7.4-11.4); RED BLOOD COUNT 4.97 10^6/uL (4.70-6.10); RED CELL DISTRIBUTION WIDTH 13.5 % (12.0-15.0); WHITE BLOOD COUNT 8.4 x10^3/uL (4.8-10.8)
[2020-03-21 12:45] LABS: CALCIUM 9.6 mg/dL (8.5-10.3); CREATININE 1.4 mg/dL (0.6-1.2)
== END 2020-03-21 23:59 | disposition home or self-care (01) ==
LOC: LAB.WCP 08:00
PROVIDERS: ATTEND Internal Medicine Nephrology
DX: N05.9 Unspecified nephritic syndrome with unspecified morphologic changes (principal); D70.9 Neutropenia, unspecified; D63.1 Anemia in chronic kidney disease; T86.10 Unspecified complication of kidney transplant; N18.9 Chronic kidney disease, unspecified
CPT/HCPCS: 36415; 80048; 80197; 85027

== ENCOUNTER 2020-07-18 08:00 | Outpatient (CLI) | payer MEDICARE, OTHER ==
[2020-07-18 12:54] LABS: MEAN CORPUSCULAR VOLUME 90.8 fL (80.0-94.0); MEAN PLATELET VOLUME 9.5 fL (7.4-11.4); RED BLOOD COUNT 5.34 10^6/uL (4.70-6.10); RED CELL DISTRIBUTION WIDTH 13.5 % (12.0-15.0); WHITE BLOOD COUNT 9.1 x10^3/uL (4.8-10.8)
[2020-07-18 13:06] LABS: CALCIUM 9.8 mg/dL (8.5-10.3); CREATININE 1.3 mg/dL (0.6-1.2)
== END 2020-07-18 23:59 | disposition home or self-care (01) ==
LOC: LAB.WCP 08:00
PROVIDERS: ATTEND Internal Medicine Nephrology
DX: N05.9 Unspecified nephritic syndrome with unspecified morphologic changes (principal); D70.9 Neutropenia, unspecified; D63.1 Anemia in chronic kidney disease; T86.10 Unspecified complication of kidney transplant
CPT/HCPCS: 36415; 80048; 80197; 85027

== ENCOUNTER 2020-09-22 07:22 | Outpatient (CLI) | payer MEDICARE, OTHER ==
[2020-09-22 11:58] LABS: HCT - HEMATOCRIT 49.7 % (42.0-52.0); HGB - HEMOGLOBIN 16.2 g/dL (14.0-18.0); MEAN CORPUSCULAR HEMOGLOBIN 30.1 pg (27.0-31.0); MEAN CORPUSCULAR HGB CONC 32.6 g/dL (32.0-36.0); MEAN CORPUSCULAR VOLUME 92.4 fL (80.0-94.0); MEAN PLATELET VOLUME 9.2 fL (7.4-11.4); RED BLOOD COUNT 5.38 10^6/uL (4.70-6.10); RED CELL DISTRIBUTION WIDTH 13.6 % (12.0-15.0); WHITE BLOOD COUNT 9.6 x10^3/uL (4.8-10.8)
[2020-09-22 12:07] LABS: CALCIUM 9.4 mg/dL (8.5-10.3); CREATININE 1.5 mg/dL (0.6-1.2); POTASSIUM 4.4 mmol/L (3.5-5.0)
== END 2020-09-22 23:59 | disposition home or self-care (01) ==
LOC: LAB.N 07:22
PROVIDERS: ATTEND Internal Medicine Nephrology
DX: N05.9 Unspecified nephritic syndrome with unspecified morphologic changes (principal); D70.9 Neutropenia, unspecified; D63.1 Anemia in chronic kidney disease; T86.10 Unspecified complication of kidney transplant
CPT/HCPCS: 36415; 80048; 80197; 85027

== ENCOUNTER 2020-10-07 07:22 | Outpatient (CLI) | payer MEDICARE, OTHER | END 2020-10-07 07:23 | disposition home or self-care (01) | LOC: LAB.N 07:22 | PROVIDERS: ATTEND Internal Medicine Nephrology | DX: N05.9 Unspecified nephritic syndrome with unspecified morphologic changes (principal); D70.9 Neutropenia, unspecified; D63.1 Anemia in chronic kidney disease; T86.10 Unspecified complication of kidney transplant | CPT/HCPCS: 36415; 80197 ==

== ENCOUNTER 2021-02-21 07:18 | Outpatient (CLI) | payer MEDICARE, OTHER ==
[2021-02-21 12:33] LABS: HCT - HEMATOCRIT 49.4 % (42.0-52.0); HGB - HEMOGLOBIN 16.2 g/dL (14.0-18.0); MEAN CORPUSCULAR HGB CONC 32.8 g/dL (32.0-36.0); MEAN CORPUSCULAR VOLUME 91.5 fL (80.0-94.0); MEAN PLATELET VOLUME 9.4 fL (7.4-11.4); RED BLOOD COUNT 5.4 10^6/uL (4.70-6.10); RED CELL DISTRIBUTION WIDTH 13.6 % (12.0-15.0); WHITE BLOOD COUNT 8.8 x10^3/uL (4.8-10.8)
[2021-02-21 12:43] LABS: CREATININE 1.3 mg/dL (0.6-1.2); POTASSIUM 4.3 mmol/L (3.5-5.0)
== END 2021-02-21 07:19 | disposition home or self-care (01) ==
LOC: LAB.N 07:18
PROVIDERS: ATTEND Internal Medicine Nephrology
DX: N05.9 Unspecified nephritic syndrome with unspecified morphologic changes (principal); D70.9 Neutropenia, unspecified; D63.1 Anemia in chronic kidney disease; T86.10 Unspecified complication of kidney transplant
CPT/HCPCS: 36415; 80048; 80197; 85027

== ENCOUNTER 2021-04-14 07:08 | Outpatient (CLI) | payer MEDICARE, OTHER ==
[2021-04-14 13:26] LABS: HCT - HEMATOCRIT 47.5 % (42.0-52.0); HGB - HEMOGLOBIN 15.9 g/dL (14.0-18.0); MEAN CORPUSCULAR HEMOGLOBIN 30.5 pg (27.0-31.0); MEAN CORPUSCULAR HGB CONC 33.5 g/dL (32.0-36.0); MEAN CORPUSCULAR VOLUME 91.2 fL (80.0-94.0); MEAN PLATELET VOLUME 9.6 fL (7.4-11.4); RED BLOOD COUNT 5.21 10^6/uL (4.70-6.10); RED CELL DISTRIBUTION WIDTH 13.8 % (12.0-15.0); WHITE BLOOD COUNT 8.9 x10^3/uL (4.8-10.8)
[2021-04-14 14:04] LABS: CALCIUM 9.3 mg/dL (8.5-10.3); CREATININE 1.2 mg/dL (0.6-1.2); POTASSIUM 4.1 mmol/L (3.5-5.0)
== END 2021-04-14 07:09 | disposition home or self-care (01) ==
LOC: LAB.N 07:08
PROVIDERS: ATTEND Internal Medicine Nephrology
DX: N05.9 Unspecified nephritic syndrome with unspecified morphologic changes (principal); D70.9 Neutropenia, unspecified; D63.1 Anemia in chronic kidney disease; T86.10 Unspecified complication of kidney transplant
CPT/HCPCS: 36415; 80048; 80197; 85027

== ENCOUNTER 2021-05-10 07:08 | Outpatient (CLI) | payer MEDICARE, OTHER ==
[2021-05-10 11:51] LABS: CREATININE 1.3 mg/dL (0.6-1.2); MAGNESIUM 1.8 mg/dL (1.7-2.8)
[2021-05-10 12:06] LABS: ESTIMATED AVERAGE GLUCOSE 134 mg/dL (70-100); HEMOGLOBIN A1c% 6.3 % (4.27-6.07)
[2021-05-10 18:52] LABS: CREATININE,URINE 66.6 mg/dL
[2021-05-10 19:24] LABS: TOTAL PROTEIN,URINE TIMED < 6 mg/dL
== END 2021-05-10 07:09 | disposition home or self-care (01) ==
LOC: LAB.N 07:08
PROVIDERS: ATTEND Internal Medicine Nephrology
DX: N05.9 Unspecified nephritic syndrome with unspecified morphologic changes (principal); E83.40 Disorders of magnesium metabolism, unspecified; E11.9 Type 2 diabetes mellitus without complications; R80.9 Proteinuria, unspecified
CPT/HCPCS: 36415; 82565; 82570; 83036; 83735; 84156

== ENCOUNTER 2021-06-07 07:07 | Outpatient (CLI) | payer MEDICARE, OTHER ==
[2021-06-07 12:31] LABS: CREATININE 1.2 mg/dL (0.6-1.2)
== END 2021-06-07 07:08 | disposition home or self-care (01) ==
LOC: LAB.N 07:07
PROVIDERS: ATTEND Internal Medicine Nephrology
DX: N05.9 Unspecified nephritic syndrome with unspecified morphologic changes (principal)
CPT/HCPCS: 36415; 82565

== ENCOUNTER 2021-06-21 07:30 | Outpatient (CLI) | payer MEDICARE, OTHER ==
[2021-06-21 08:32] LABS: BASOPHILS # (AUTO) 0.1 10^3/uL (0.0-0.1); EOSINOPHILS # (AUTO) 0.2 10^3/uL (0.0-0.7); EOSINOPHILS % (AUTO) 1.9 %; HCT - HEMATOCRIT 47.8 % (42.0-52.0); LYMPHOCYTES # (AUTO) 1.1 10^3/uL (1.5-3.5); LYMPHOCYTES % (AUTO) 13.6 %; MEAN CORPUSCULAR HEMOGLOBIN 30.1 pg (27.0-31.0); MEAN CORPUSCULAR HGB CONC 33.5 g/dL (32.0-36.0); MEAN CORPUSCULAR VOLUME 89.8 fL (80.0-94.0); MEAN PLATELET VOLUME 9.1 fL (7.4-11.4); MONOCYTES # (AUTO) 0.7 10^3/uL (0.0-1.0); MONOCYTES % (AUTO) 8.6 %; NEUTROPHILS # (AUTO) 5.6 10^3/uL (1.5-6.6); NEUTROPHILS % (AUTO) 71.6 %; PLT - PLATELET COUNT 184 10^3/uL (130-450); RED BLOOD COUNT 5.32 10^6/uL (4.70-6.10); RED CELL DISTRIBUTION WIDTH 13.7 % (12.0-15.0); WHITE BLOOD COUNT 7.9 x10^3/uL (4.8-10.8)
[2021-06-21 08:50] LABS: TOTAL PROTEIN,URINE TIMED < 6 mg/dL
[2021-06-21 08:51] LABS: ALBUMIN 4.1 g/dL (3.2-5.5); ALBUMIN/GLOBULIN RATIO 1.6 (1.0-2.2); ALKALINE PHOSPHATASE 68 IU/L (42-121); ALT ALANINE AMINOTRANSFERASE 33 IU/L (10-60); AST ASPARTATE AMINOTRANSFERASE 21 IU/L (10-42); BILIRUBIN,TOTAL 0.8 mg/dL (0.2-1.0); BUN - BLOOD UREA NITROGEN 22 mg/dL (6-20); CALCIUM 9.2 mg/dL (8.5-10.3); CARBON DIOXIDE - CO2 22 mmol/L (21-32); CHLORIDE 104 mmol/L (101-111); CHOL/HDL RATIO 3.9 (<5.0); CHOLESTEROL 146 mg/dL; GFR - MDRD 80 (>89); GLUCOSE 172 mg/dL (70-100); HDL CHOLESTEROL 37 mg/dL; LDL CHOLESTEROL,CALCULATED 84 mg/dL; LDL/HDL RATIO 2.3 (<3.6); MAGNESIUM 1.9 mg/dL (1.7-2.8); PHOSPHORUS 2.8 mg/dL (2.5-4.6); POTASSIUM 4.2 mmol/L (3.5-5.0); SODIUM 135 mmol/L (135-145); TOTAL PROTEIN 6.6 g/dL (6.7-8.2); TRIGLYCERIDES 127 mg/dL; VLDL CHOLESTEROL 25 mg/dL
[2021-06-21 09:02] LABS: BILIRUBIN,URINE NEGATIVE (NEGATIVE); GLUCOSE, URINE (UA) NEGATIVE (NEGATIVE); KETONES,URINE (UA) NEGATIVE (NEGATIVE); LEUKOCYTE ESTERASE, URINE NEGATIVE (NEGATIVE); NITRITE,URINE NEGATIVE (NEGATIVE); OCCULT BLOOD,URINE TRACE-INTA (NEGATIVE); PROTEIN,URINE NEGATIVE (NEGATIVE); UROBILINOGEN,URINE 0.2 (NORMAL) E.U./dL (NORMAL)
[2021-06-21 09:04] LABS: CLARITY,URINE CLEAR (CLEAR)
[2021-06-21 09:19] LABS: BACTERIA,URINE None Seen /HPF (None Seen); RBC,URINE 0-5 /HPF (0-5); SQUAMOUS EPITHELIAL CELL,UR NONE SEEN (<= Few); WBC,URINE 0-3 /HPF (0-3)
== END 2021-06-21 07:31 | disposition home or self-care (01) ==
LOC: LAB 07:30
PROVIDERS: ATTEND Internal Medicine
DX: Z94.0 Kidney transplant status (principal); Z48.298 Encounter for aftercare following other organ transplant; T86.90 Unspecified complication of unspecified transplanted organ and tissue; B34.9 Viral infection, unspecified; E83.40 Disorders of magnesium metabolism, unspecified; E55.9 Vitamin D deficiency, unspecified
CPT/HCPCS: 36415; 80053; 80061; 80197; 81001; 81599; 82306; 82570; 83721; 83735; 83970; 84100; 84156; 85025; 87086

== ENCOUNTER 2021-10-02 07:12 | Outpatient (CLI) | payer MEDICARE, OTHER ==
[2021-10-02 12:24] LABS: HGB - HEMOGLOBIN 15.6 g/dL (14.0-18.0); MEAN CORPUSCULAR HEMOGLOBIN 30.1 pg (27.0-31.0); MEAN CORPUSCULAR HGB CONC 33.2 g/dL (32.0-36.0); MEAN CORPUSCULAR VOLUME 90.6 fL (80.0-94.0); MEAN PLATELET VOLUME 9.3 fL (7.4-11.4); RED BLOOD COUNT 5.19 10^6/uL (4.70-6.10); RED CELL DISTRIBUTION WIDTH 14.6 % (12.0-15.0); WHITE BLOOD COUNT 7.4 x10^3/uL (4.8-10.8)
[2021-10-02 13:40] LABS: CREATININE 1.1 mg/dL (0.6-1.2)
[2021-10-02 13:47] LABS: CALCIUM 9.5 mg/dL (8.5-10.3); POTASSIUM 4.4 mmol/L (3.5-5.0)
== END 2021-10-02 07:13 | disposition home or self-care (01) ==
LOC: LAB.N 07:12
PROVIDERS: ATTEND Internal Medicine Nephrology
DX: N05.9 Unspecified nephritic syndrome with unspecified morphologic changes (principal); D70.9 Neutropenia, unspecified; D63.1 Anemia in chronic kidney disease; T86.10 Unspecified complication of kidney transplant
CPT/HCPCS: 36415; 80048; 80197; 85027

== ENCOUNTER 2021-10-11 07:07 | Outpatient (CLI) | payer MEDICARE, OTHER ==
[2021-10-11 13:11] LABS: ESTIMATED AVERAGE GLUCOSE 151 mg/dL (70-100); HEMOGLOBIN A1c% 6.9 % (4.27-6.07)
== END 2021-10-11 07:08 | disposition home or self-care (01) ==
LOC: LAB.N 07:07
PROVIDERS: ATTEND Internal Medicine Nephrology
DX: E11.9 Type 2 diabetes mellitus without complications (principal)
CPT/HCPCS: 36415; 83036

== ENCOUNTER 2022-02-02 08:15 | Outpatient (CLI) | payer MEDICARE, OTHER ==
[2022-02-02 08:53] LABS: BILIRUBIN,URINE NEGATIVE (NEGATIVE); GLUCOSE, URINE (UA) NEGATIVE (NEGATIVE); KETONES,URINE (UA) NEGATIVE (NEGATIVE); LEUKOCYTE ESTERASE, URINE NEGATIVE (NEGATIVE); NITRITE,URINE NEGATIVE (NEGATIVE); OCCULT BLOOD,URINE NEGATIVE (NEGATIVE); PROTEIN,URINE NEGATIVE (NEGATIVE); UROBILINOGEN,URINE 0.2 (NORMAL) E.U./dL (NORMAL)
[2022-02-02 08:57] LABS: BASOPHILS # (AUTO) 0.1 10^3/uL (0.0-0.1); EOSINOPHILS # (AUTO) 0.1 10^3/uL (0.0-0.7); EOSINOPHILS % (AUTO) 2.2 %; HCT - HEMATOCRIT 47.9 % (42.0-52.0); HGB - HEMOGLOBIN 16.3 g/dL (14.0-18.0); LYMPHOCYTES # (AUTO) 1.3 10^3/uL (1.5-3.5); LYMPHOCYTES % (AUTO) 22.5 %; MEAN CORPUSCULAR HEMOGLOBIN 30.2 pg (27.0-31.0); MEAN CORPUSCULAR VOLUME 88.9 fL (80.0-94.0); MEAN PLATELET VOLUME 8.6 fL (7.4-11.4); MONOCYTES # (AUTO) 0.6 10^3/uL (0.0-1.0); MONOCYTES % (AUTO) 10.2 %; NEUTROPHILS # (AUTO) 3.6 10^3/uL (1.5-6.6); NEUTROPHILS % (AUTO) 61.9 %; PLT - PLATELET COUNT 182 10^3/uL (130-450); RED BLOOD COUNT 5.39 10^6/uL (4.70-6.10); RED CELL DISTRIBUTION WIDTH 13.8 % (12.0-15.0); WHITE BLOOD COUNT 5.8 x10^3/uL (4.8-10.8)
[2022-02-02 09:08] LABS: BACTERIA,URINE None Seen /HPF (None Seen); CLARITY,URINE CLEAR (CLEAR); CREATININE,URINE 50.4 mg/dL; MICROALBUMIN,URINE < 0.2 mg/dL (0-300.0); RBC,URINE None Seen /HPF (0-5); SQUAMOUS EPITHELIAL CELL,UR NONE SEEN (<= Few); TOTAL PROTEIN,URINE TIMED < 6 mg/dL; WBC,URINE 0-3 /HPF (0-3)
[2022-02-02 09:14] LABS: ALBUMIN 4.3 g/dL (3.2-5.5); ALBUMIN/GLOBULIN RATIO 1.7 (1.0-2.2); ALKALINE PHOSPHATASE 66 IU/L (42-121); ALT ALANINE AMINOTRANSFERASE 33 IU/L (10-60); AST ASPARTATE AMINOTRANSFERASE 20 IU/L (10-42); BILIRUBIN,TOTAL 0.8 mg/dL (0.2-1.0); BUN - BLOOD UREA NITROGEN 21 mg/dL (6-20); CALCIUM 9.7 mg/dL (8.5-10.3); CARBON DIOXIDE - CO2 25 mmol/L (21-32); CHLORIDE 104 mmol/L (101-111); CHOL/HDL RATIO 5.7 (<5.0); CHOLESTEROL 155 mg/dL; CREATININE 1.2 mg/dL (0.6-1.2); GFR - MDRD 65 (>89); GLUCOSE 121 mg/dL (70-100); HDL CHOLESTEROL 27 mg/dL; LDL CHOLESTEROL,CALCULATED 86 mg/dL; LDL/HDL RATIO 3.2 (<3.6); MAGNESIUM 1.7 mg/dL (1.7-2.8); PHOSPHORUS 2.9 mg/dL (2.5-4.6); POTASSIUM 3.8 mmol/L (3.5-5.0); SODIUM 140 mmol/L (135-145); TOTAL PROTEIN 6.9 g/dL (6.7-8.2); TRIGLYCERIDES 209 mg/dL; VLDL CHOLESTEROL 42 mg/dL
[2022-02-02 12:44] LABS: ESTIMATED AVERAGE GLUCOSE 140 mg/dL (70-100); HEMOGLOBIN A1c% 6.5 % (4.27-6.07)
[2022-02-03 07:09] LABS: TACROLIMUS (FK506) 5.7 ng/mL (2.0-20.0)
[2022-02-07 08:09] LABS: MYCOPHENOLIC ACID 1.1 ug/mL (1.0-3.5)
== END 2022-02-02 08:16 | disposition home or self-care (01) ==
LOC: LAB 08:15
PROVIDERS: ATTEND Internal Medicine
DX: N05.9 Unspecified nephritic syndrome with unspecified morphologic changes (principal); D70.9 Neutropenia, unspecified; D63.1 Anemia in chronic kidney disease; T86.10 Unspecified complication of kidney transplant; E13.9 Other specified diabetes mellitus without complications; E55.9 Vitamin D deficiency, unspecified; N39.0 Urinary tract infection, site not specified; B34.9 Viral infection, unspecified
CPT/HCPCS: 36415; 80053; 80061; 80180; 80197; 81001; 81599; 82043; 82306; 82570; 83036; 83721; 83735; 83970; 84100; 84156; 85025; 87086; 87799

== ENCOUNTER 2022-08-02 07:09 | Outpatient (CLI) | payer MEDICARE, OTHER ==
[2022-08-02 12:21] LABS: BASOPHILS # (AUTO) 0.1 10^3/uL (0.0-0.1); BASOPHILS % (AUTO) 1.4 %; EOSINOPHILS # (AUTO) 0.2 10^3/uL (0.0-0.7); EOSINOPHILS % (AUTO) 2.4 %; HCT - HEMATOCRIT 46.8 % (42.0-52.0); HGB - HEMOGLOBIN 15.2 g/dL (14.0-18.0); LYMPHOCYTES # (AUTO) 1.5 10^3/uL (1.5-3.5); LYMPHOCYTES % (AUTO) 23.7 %; MEAN CORPUSCULAR HEMOGLOBIN 30.7 pg (27.0-31.0); MEAN CORPUSCULAR HGB CONC 32.5 g/dL (32.0-36.0); MEAN CORPUSCULAR VOLUME 94.5 fL (80.0-94.0); MEAN PLATELET VOLUME 9.4 fL (7.4-11.4); MONOCYTES # (AUTO) 0.6 10^3/uL (0.0-1.0); MONOCYTES % (AUTO) 8.8 %; NEUTROPHILS # (AUTO) 3.9 10^3/uL (1.5-6.6); NEUTROPHILS % (AUTO) 60.4 %; PLT - PLATELET COUNT 179 10^3/uL (130-450); RED BLOOD COUNT 4.95 10^6/uL (4.70-6.10); RED CELL DISTRIBUTION WIDTH 14.6 % (12.0-15.0); WHITE BLOOD COUNT 6.4 x10^3/uL (4.8-10.8)
[2022-08-02 12:40] LABS: CREATININE 1.2 mg/dL (0.6-1.2)
[2022-08-02 12:50] LABS: ESTIMATED AVERAGE GLUCOSE 140 mg/dL (70-100); HEMOGLOBIN A1c% 6.5 % (4.27-6.07)
[2022-08-02 12:59] LABS: CREATININE,URINE 42.8 mg/dL
[2022-08-02 13:01] LABS: TOTAL PROTEIN,URINE TIMED < 6 mg/dL
== END 2022-08-02 07:10 | disposition home or self-care (01) ==
LOC: LAB.N 07:09
PROVIDERS: ATTEND Internal Medicine Nephrology
DX: N05.9 Unspecified nephritic syndrome with unspecified morphologic changes (principal); D70.9 Neutropenia, unspecified; D63.1 Anemia in chronic kidney disease; T86.10 Unspecified complication of kidney transplant; E11.9 Type 2 diabetes mellitus without complications; R80.9 Proteinuria, unspecified
CPT/HCPCS: 36415; 80048; 80197; 82570; 83036; 84156; 85025

== ENCOUNTER 2022-08-21 07:13 | Outpatient (CLI) | payer MEDICARE, OTHER | END 2022-08-21 07:14 | disposition home or self-care (01) | LOC: LAB.N 07:13 | PROVIDERS: ATTEND Internal Medicine Nephrology | DX: T86.10 Unspecified complication of kidney transplant (principal) | CPT/HCPCS: 80197 ==

== ENCOUNTER 2022-11-08 07:12 | Outpatient (CLI) | payer MEDICARE, OTHER ==
[2022-11-08 11:34] LABS: BASOPHILS # (AUTO) 0.1 10^3/uL (0.0-0.1); BASOPHILS % (AUTO) 1.1 %; EOSINOPHILS # (AUTO) 0.2 10^3/uL (0.0-0.7); EOSINOPHILS % (AUTO) 1.9 %; HCT - HEMATOCRIT 50.4 % (42.0-52.0); HGB - HEMOGLOBIN 16.8 g/dL (14.0-18.0); LYMPHOCYTES # (AUTO) 1.7 10^3/uL (1.5-3.5); MEAN CORPUSCULAR HEMOGLOBIN 30.1 pg (27.0-31.0); MEAN CORPUSCULAR HGB CONC 33.3 g/dL (32.0-36.0); MEAN CORPUSCULAR VOLUME 90.3 fL (80.0-94.0); MEAN PLATELET VOLUME 9.6 fL (7.4-11.4); MONOCYTES # (AUTO) 0.7 10^3/uL (0.0-1.0); MONOCYTES % (AUTO) 8.5 %; NEUTROPHILS # (AUTO) 5.1 10^3/uL (1.5-6.6); NEUTROPHILS % (AUTO) 64.5 %; PLT - PLATELET COUNT 201 10^3/uL (130-450); RED BLOOD COUNT 5.58 10^6/uL (4.70-6.10); RED CELL DISTRIBUTION WIDTH 13.2 % (12.0-15.0); WHITE BLOOD COUNT 7.9 x10^3/uL (4.8-10.8)
[2022-11-08 12:12] LABS: BUN - BLOOD UREA NITROGEN 21 mg/dL (6-20); CARBON DIOXIDE - CO2 29 mmol/L (21-32); CHLORIDE 104 mmol/L (101-111); CHOLESTEROL 136 mg/dL; CREATININE 1.1 mg/dL (0.6-1.2); GFR - MDRD 71 (>89); GLUCOSE 132 mg/dL (70-100); HDL CHOLESTEROL 34 mg/dL; LDL CHOLESTEROL,CALCULATED 68 mg/dL; POTASSIUM 4.4 mmol/L (3.5-5.0); SODIUM 139 mmol/L (135-145); TRIGLYCERIDES 172 mg/dL; VLDL CHOLESTEROL 34 mg/dL
[2022-11-08 12:26] LABS: ESTIMATED AVERAGE GLUCOSE 148 mg/dL (70-100); HEMOGLOBIN A1c% 6.8 % (4.27-6.07)
[2022-11-08 13:19] LABS: CALCIUM 12.9 mg/dL (8.5-10.3)
== END 2022-11-08 07:13 | disposition home or self-care (01) ==
LOC: LAB.N 07:12
PROVIDERS: ATTEND Internal Medicine Nephrology
DX: N05.9 Unspecified nephritic syndrome with unspecified morphologic changes (principal); D70.9 Neutropenia, unspecified; D63.1 Anemia in chronic kidney disease; T86.10 Unspecified complication of kidney transplant; E11.9 Type 2 diabetes mellitus without complications; E78.5 Hyperlipidemia, unspecified
CPT/HCPCS: 36415; 80048; 80061; 80197; 83036; 83721; 85025

== ENCOUNTER 2022-11-14 07:06 | Outpatient (CLI) | payer MEDICARE, OTHER ==
[2022-11-14 11:45] LABS: CALCIUM 9.8 mg/dL (8.5-10.3); MAGNESIUM 1.8 mg/dL (1.7-2.8)
== END 2022-11-14 07:07 | disposition home or self-care (01) ==
LOC: LAB.N 07:06
PROVIDERS: ATTEND Internal Medicine Nephrology
DX: E83.40 Disorders of magnesium metabolism, unspecified (principal); T86.10 Unspecified complication of kidney transplant; E83.30 Disorder of phosphorus metabolism, unspecified; N25.81 Secondary hyperparathyroidism of renal origin
CPT/HCPCS: 36415; 80197; 82310; 83735; 83970; 84100

== ENCOUNTER 2023-02-01 07:06 | Outpatient (CLI) | payer MEDICARE, OTHER ==
[2023-02-01 12:41] LABS: CALCIUM 9.6 mg/dL (8.5-10.3); CREATININE 1.4 mg/dL (0.6-1.2); MAGNESIUM 2.1 mg/dL (1.7-2.8); PHOSPHORUS 3.2 mg/dL (2.5-4.6); POTASSIUM 3.8 mmol/L (3.5-5.0)
== END 2023-02-01 07:07 | disposition home or self-care (01) ==
LOC: LAB.N 07:06
PROVIDERS: ATTEND Internal Medicine Nephrology
DX: E11.9 Type 2 diabetes mellitus without complications (principal); N05.9 Unspecified nephritic syndrome with unspecified morphologic changes; N25.81 Secondary hyperparathyroidism of renal origin; E87.5 Hyperkalemia; E83.40 Disorders of magnesium metabolism, unspecified; T86.10 Unspecified complication of kidney transplant
CPT/HCPCS: 36415; 80048; 80197; 83735; 83970; 84100

== ENCOUNTER 2023-06-17 08:43 | Outpatient (CLI) | payer MEDICARE, OTHER ==
[2023-06-17 12:34] LABS: BASOPHILS # (AUTO) 0.1 10^3/uL (0.0-0.1); BASOPHILS % (AUTO) 1.1 %; EOSINOPHILS # (AUTO) 0.1 10^3/uL (0.0-0.7); EOSINOPHILS % (AUTO) 1.4 %; HCT - HEMATOCRIT 52.3 % (42.0-52.0); HGB - HEMOGLOBIN 17.3 g/dL (14.0-18.0); LYMPHOCYTES % (AUTO) 20.4 %; MEAN CORPUSCULAR HGB CONC 33.1 g/dL (32.0-36.0); MEAN CORPUSCULAR VOLUME 90.6 fL (80.0-94.0); MEAN PLATELET VOLUME 9.3 fL (7.4-11.4); MONOCYTES # (AUTO) 0.8 10^3/uL (0.0-1.0); MONOCYTES % (AUTO) 7.9 %; NEUTROPHILS # (AUTO) 6.5 10^3/uL (1.5-6.6); NEUTROPHILS % (AUTO) 65.5 %; PLT - PLATELET COUNT 224 10^3/uL (130-450); RED BLOOD COUNT 5.77 10^6/uL (4.70-6.10); WHITE BLOOD COUNT 9.9 x10^3/uL (4.8-10.8)
[2023-06-17 12:51] LABS: CALCIUM 10.1 mg/dL (8.5-10.3)
[2023-06-17 13:06] LABS: CREATININE,URINE 76.8 mg/dL; PROTEIN/CREATININE RATIO,URINE 0.1 (<=0.2)
[2023-06-17 13:16] LABS: ESTIMATED AVERAGE GLUCOSE 140 mg/dL (70-100); HEMOGLOBIN A1c% 6.5 % (4.27-6.07)
== END 2023-06-17 08:44 | disposition home or self-care (01) ==
LOC: LAB.N 08:43
PROVIDERS: ATTEND Internal Medicine Nephrology
DX: E11.9 Type 2 diabetes mellitus without complications (principal); N05.9 Unspecified nephritic syndrome with unspecified morphologic changes; R80.9 Proteinuria, unspecified; D70.9 Neutropenia, unspecified; D63.1 Anemia in chronic kidney disease; T86.10 Unspecified complication of kidney transplant
CPT/HCPCS: 36415; 80048; 80197; 82570; 83036; 84156; 85025